=== PATIENT | male | born 1990 | race Caucasian/White ===

== ENCOUNTER 2020-06-19 22:05 | Emergency (ER) | payer SELFPAY ==
[2020-06-19] MEDS ORDERED: Lidocaine 1% with EPINEPHrine 1:100,000 50 ML MDV SUBCUT STA (22:42)
[2020-06-19] MEDS ORDERED: Bacitracin Oint 1 GM U/D Packet TOP ONE (22:42)
--- NOTE | 2020-06-19 22:45 | EDM.PDOC ---
ED HPI GENERAL MEDICAL PROBLEM - General Chief Complaint: Head Injury Stated Complaint: HEAD INJURY Time Seen by Provider: 06/19/20 22:38 Source of Information: Reports: Patient, Family, RN Notes Reviewed History Limitations: Reports: No Limitations - History of Present Illness INITIAL COMMENTS - FREE TEXT/NARRATIVE: 29-year-old gentleman presents emergency department today with a laceration the back of his scalp, he injured himself in a gravel pit he slipped and landed on the gravel and he thinks he may hit a rock causing the head injury there is no loss of consciousness no nausea or vomiting head injury Pain Score (Numeric/FACES): 8 - Related Data Allergies Allergy/AdvReac Type Severity Reaction Status Date / Time No Known Allergies Allergy Verified 06/19/20 22:15 Home Meds: Home Meds NK [No Known Home Meds] 06/19/20 [History] Past Medical History Musculoskeletal History: Reports: Fracture Neurological History: Reports: Concussion - Past Surgical History HEENT Surgical History: Reports: Tonsillectomy Social & Family History - Tobacco Use Smoking Status *Q: Current Every Day Smoker Years of Tobacco use: 10 Packs/Tins Daily: 1 - Caffeine Use Caffeine Use: Reports: Coffee, Soda - Recreational Drug Use Recreational Drug Use: No ED ROS GENERAL - Review of Systems Review Of Systems: See Below Constitutional: Reports: No Symptoms HEENT: Reports: No Symptoms Respiratory: Reports: No Symptoms Cardiovascular: Reports: No Symptoms GI/Abdominal: Reports: No Symptoms Skin: Reports: Wound Neurological: Reports: No Symptoms ED EXAM, HEAD INJURY - Physical Exam Exam: See Below Text/Narrative:: Examination the wound of the scalp there is a irregular laceration completely through the dermis approximately total of 4 cm in length Exam Limited By: No Limitations General Appearance: Alert, WD/WN, No Apparent Distress Head: Scalp Lacerations, Scalp Hematoma Nexus Criteria: No: Posterior, Midline Cervical Tenderness, Evidence of Intoxication, Altered Level of Consciousness, Focal Neurological Deficit, Painful Distraction Injuries Eyes: Bilateral Eye: Normal Inspection, PERRL Ears: Normal External Exam, Normal Canal, Hearing Grossly Normal, Normal TMs Throat/Mouth: Normal Inspection, Normal Lips, Normal Teeth, Normal Gums, Normal Oropharynx, Normal Voice, No Airway Compromise Respiratory: No Respiratory Distress ED LACERATION/WOUND & SETH PROC - Laceration/Wound Repair Head Lac/wound length in cm: 4 Appearance: Subcutaneous, Irregular Distal NVT: Neuro & Vascular Intact, No Tendon Injury Anesthetic Type: Local Local Anesthesia - Lidocaine (Xylocaine): 1% with EPI Local Anesthetic Volume: 3cc Skin Prep: Saline Saline irrigation (cc's): 60 Exploration/Debridement/Repair: Wound Explored, In a Bloodless Field, Explored to Base Closed with: Cutler # of Sutures: 9 Sterile Dressing Applied: Nurse Tetanus Status Addressed: Yes (2018) Complications: No Course - Vital Signs Last Recorded V/S: Last Vital Signs Temp 98.0 F 06/19/20 22:24 Pulse 78 06/19/20 22:24 Resp 15 06/19/20 22:24 BP 113/63 06/19/20 22:24 Pulse Ox 96 06/19/20 22:24 - Orders/Labs/Meds Meds: Medications Discontinued Medications Generic Name Dose Route Start Last Admin Trade Name Tate PRN Reason Stop Dose Admin Bacitracin 1 dose 06/19/20 22:42 Bacitracin Oint 1 Gm TOP 06/19/20 22:43 ONETIME ONE Lidocaine/Epinephrine 20 ml 06/19/20 22:42 Xylocaine 1% With Epinephrine 1:100,000 SUBCUT 06/19/20 22:43 NOW STA Departure - Departure Time of Disposition: 22:54 Disposition: Home, Self-Care 01 Condition: Fair Clinical Impression: Laceration of head Qualifiers: Encounter type: initial encounter Location of open wound of head: scalp Foreign body presence: without foreign body Qualified Code(s): S01.01XA - Laceration without foreign body of scalp, initial encounter - Discharge Information Instructions: Head Injury, Adult, [id number], Laceration Care, Adult Referrals: PCP,None [Primary Care Provider] - Forms: ED Department Discharge Additional Instructions: Staple removal in 10 days, follow-up with primary care or return to emergency department for staple removal use Tylenol Motrin as needed for pain control, call return to the emergency department worsening of symptoms. Sepsis Event Note (ED) - Evaluation Sepsis Screening Result: No Definite Risk - Focused Exam Vital Signs: Vital Signs Temp Pulse Resp BP Pulse Ox 06/19/20 22:24 98.0 F 78 15 113/63 96 06/19/20 22:16 98.0 F 78 15 113/63 96 - Assessment/Plan Plan: Assessment Acuity = acute Site and laterality = head laceration Etiology = secondary to trauma Manifestations = none Location of injury = Home Lab values = none Plan Staple removal in 10 days, follow wound care instruction sheet This note was dictated using [employer] voice recognition software please call with any questions on syntax or grammar.
== END 2020-06-19 23:08 | disposition home or self-care (01) ==
LOC: JP.ED 22:05
DX: S01.01XA Laceration without foreign body of scalp, initial encounter (principal); F17.210 Nicotine dependence, cigarettes, uncomplicated; W01.0XXA Fall on same level from slipping, tripping and stumbling without subsequent striking against object, initial encounter
CPT/HCPCS: 12002; 99282